=== PATIENT | male | born 1985 | race Caucasian/White ===

== ENCOUNTER 2017-09-01 16:34 | Emergency (ER) | payer OTHER ==
[~2017-09-01] VITALS: Ht 167.6 cm; Wt 80.0 kg
[~2017-09-01 16:34] MED LIST: ALBU6.7H INH; ALBU8I INH; BENZ100 PO; CLAR250T PO; FLOV110A IN; PHEN12.5 RE; PROMSYP PO
[2017-09-01 16:44] VITALS: BP 146/77; PULSE 87; RESP 16; TEMP 98.1; O2SAT 97
--- NOTE | 2017-09-01 17:53 | PD ---
HPI Chief Complaint: Injury Time Seen by Provider: 17:48 Travel History International Travel<30 days: No Contact w/Intl Traveler<30days: No Traveled to known affect area: No History of Present Illness HPI This patient complains of right wrist pain. Duration is 3 days. Severity is moderate. It is worse with movement. There is been no injury. He has no idea why it started hurting. No fever or redness or warmth. No alleviating factors. PFSH Past Medical History Medical History: Denies Significant Hx Diminished Hearing: No Immunizations Current: No Tetanus Vaccination: Unknown Past Surgical History Surgical History: No Previous Surgery Genitourinary Surgery: Yes (VASECTOMY) Social History Alcohol Use: Yes (RARELY) Tobacco Use: No Substance Use: No Allergies-Medications (Allergen,Severity, Reaction): Coded Allergies: No Known Allergies (Verified , 09/01/17) Reported Meds & Prescriptions Reported Meds & Active Scripts Active No Active Prescriptions or Reported Medications Review of Systems General / Constitutional: No: Fever HENT: No: Headaches Cardiovascular: No: Chest Pain or Discomfort Respiratory: No: Cough Physical Exam Narrative SKIN: Focused skin assessment reveals no rash or ulcers. Skin is warm and dry. Palpation shows no induration or nodules. Psych: Normal mood and affect. Normal insight and judgment. Right wrist: There is no erythema or swelling or bruising or warmth. Good range of motion. There is no snuffbox tenderness. No findings regarding fingers or hand or forearm Neurovascularly intact Data Data Last Documented VS Vital Signs Date Time Temp Pulse Resp B/P (MAP) Pulse Ox O2 Delivery O2 Flow Rate FiO2 09/01/17 16:44 98.1 87 16 146/77 (100) 97 Orders Orders Splint Or Brace Apply/Monitor (09/01/17 17:49) MDM Medical Decision Making Medical Screen Exam Complete: Yes Emergency Medical Condition: Yes Medical Record Reviewed: Yes Differential Diagnosis Tendinitis, nerve injury, inflammatory arthritis Narrative Course I have reviewed the patient's electronic medical record. Etiology is unclear from history and physical. There are no objective findings. I don't feel x-ray would be helpful Does not seem consistent with carpal tunnel May be tendinitis variant I recommend ice and elevate and Advil and I gave him a Velcro wrist splint Follow-up with primary care Diagnosis Primary Impression: Acute pain of right wrist Additional Instructions: Ice and elevate and rest right wrist Wear brace Use Advil as needed The patient was advised to follow up with their physician and return if they worsen. Med/Other Pt SpecificInfo: Other Scripts No Active Prescriptions or Reported Meds Disposition: 01 DISCHARGE HOME Condition: Stable Balwinder Willard MD Sep 01, 2017 17:52
== END 2017-09-01 18:19 | disposition home or self-care (01) ==
LOC: PHED 16:34 → PHEFT 18:19
DX: M25.531 Pain in right wrist (principal)
CPT/HCPCS: 99282; L3908